=== PATIENT | female | born 1980 | race American Indian/Alaskan Native ===

== ENCOUNTER 2017-07-22 11:18 | Day surgery (SDC) | payer MEDICAID, OTHER ==
--- NOTE | 2017-07-21 23:47 | History and Physical Report ---
History of Present Illness Date of examination: 07/22/17 Chief complaint: Undesired Fertility History of present illness: Pt is a 37 year old -[place] female 2 2 10 who presents for surgical sterilization. She is aware of long-acting reversible contraceptives and she desires to proceed. 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: chlamydia (remote, treated ), gonorrhea (remote, treated), herpes, trichomonas (remote, treated ) Family/Genetic History: diabetes, hypertension, stroke, cancer Social history: no significant social history - Obstetrical History : 12 Para: 10 Hx # Term Pregnancies: 8 Number of Pregnancies: 2 Spontaneous Abortions: 0 Induced : 2 Number of Living Children: 10 Medications and Allergies Allergies Allergy/AdvReac Type Severity Reaction Status Date / Time No Known Allergies Allergy Unverified 07/20/17 16:47 Home Medications Medication Instructions Recorded Confirmed Last Taken Type No Known Home Medications [No 07/20/17 07/20/17 Unknown History Reported Home Medications] Review of Systems All systems: negative - Physical Exam Breasts: Positive: deferred Cardiovascular: Regular rate Lungs: Positive: Clear to auscultation Abdomen: Positive: soft (obese) Extremities: Positive: normal Results All other labs normal. Assessment and Plan A: Grandmultiparity Undesired fertility Obesity P: Proceed with laparoscopic tubal ligation and other indicated procedures.
[~2017-07-22 11:18] MED LIST: ANCEF/STERILE WATER 2 GM/20 ML 2 GM/20 ML SYRINGE IV NR; LACTATED RINGERS 1,000 ML IV SCH
--- NOTE | 2017-07-22 12:37 | Anesthesia Consultation ---
Anesthesia Consult and Med Hx Date of service: 07/22/17 - Airway Anesthetic Teeth Evaluation: Good (missing rear tooth) ROM Head & Neck: Adequate Mental/Hyoid Distance: Adequate Mallampati Class: Class I Intubation Access Assessment: Probably Good - Pulmonary Exam CTA: Yes - Cardiac Exam Cardiac Exam: RRR - Pre-Operative Health Status ASA Pre-Surgery Classification: ASA2 - Pulmonary Hx Smoking: Yes (former) Hx Asthma: No COPD: No Hx Pneumonia: No - Cardiovascular System Hx Hypertension: Yes (when ) - Central Nervous System Hx Seizures: No Hx Psychiatric Problems: No - Endocrine Hx Renal Disease: No Hx End Stage Renal Disease: No Hx Hypothyroidism: No Hx Hyperthyroidism: No - Hematic Hx Anemia: No Hx Sickle Cell Disease: No - Other Systems Hx Alcohol Use: No Hx Cancer: No - Additional Comments Anesthesia Medical History Comments: H/O pneumonia with chest tube end of january 2016
--- NOTE | 2017-07-22 12:38 | Anesthesia Day of Surgery ---
Anesthesia Day of Surgery - Day of Surgery Patient Examined: Yes Patient H&P Reviewed: Yes Patient is NPO: Yes
[2017-07-22 12:42] LABS: Hematocrit 41.8 % (30.3-42.9); Hemoglobin 13.5 gm/dl (10.1-14.3); Mean Corpuscular HGB Conc 32 % (30-34); Mean Corpuscular Hemoglobin 26 pg (28-32); Mean Corpuscular Volume 81 fl (79-97); Platelet Count 262 K/mm3 (140-440); Red Blood Count 5.13 M/mm3 (3.65-5.03); Red Cell Distribution Width 16.2 % (13.2-15.2)
[2017-07-22] MEDS ORDERED: PEPCID PO NR (13:00)
[2017-07-22] MEDS ORDERED: VERSED IV NR (13:00)
[2017-07-22] MEDS ORDERED: XYLOCAINE MPF 2% ONE (13:07)
[2017-07-22] MEDS ORDERED: ZEMURON IV ONE (13:07)
[2017-07-22] MEDS ORDERED: DIPRIVAN 10 MG/ML IV ONE (13:08)
[2017-07-22] MEDS ORDERED: SUBLIMAZE ONE (13:08)
[2017-07-22] MEDS ORDERED: MARCAINE 0.5% 30 ML INFILTRATI ONE (13:09)
[2017-07-22] MEDS ORDERED: NACL 0.9% 1000 ML 1,000 ML IV SCH (13:30)
[2017-07-22] MEDS ORDERED: MARCAINE 0.5% INFILTRATI ONE (13:37)
[2017-07-22] MEDS ORDERED: NACL 0.9% IR ONE ×2 (13:37)
[2017-07-22] MEDS ORDERED: NEOSTIGMINE ONE (13:49)
[2017-07-22] MEDS ORDERED: ZOFRAN ONE (13:49)
[2017-07-22] MEDS ORDERED: ROBINUL ONE (13:49)
[2017-07-22] MEDS ORDERED: DECADRON ONE (13:49)
[2017-07-22] MEDS ORDERED: SILVER NITRATE TP ONE ×2 (14:34→14:36)
--- NOTE | 2017-07-22 14:47 | Operative Report ---
Operative Report Operative Report: Date of procedure: July 22, 2017 Preoperative diagnosis: 1) Multiparity desires permanent sterilization 2) Obesity Postoperative diagnosis: Same Procedure: Laparoscopic bilateral tubal ligation via Filshie clip method Surgeon: Clarissa Breen MD Signal Apprentice: Mathew Matthews MD Anesthesia: General endotracheal anesthesia Findings: 1) 8-10 wk sized anteverted uterus 2) Normal appearing uterus, ovaries and fallopian tubes Estimated blood loss: 25 mL IV fluid: 900 mL Urine output: 100 mL clear prior to the procedure Specimens: None Complications: None. Counts correct 2 Disposition: Stable to PACU Indications for procedure: Patient is a 37-year-old 12para 8 2 2 10 who desires permanent sterilization. She is aware of long-acting reversible contraceptives and desires to proceed. Operation in detail: After the risks, benefits, alternatives and complications of the procedure were explained to the patient, she gave informed consent for the procedure. She was subsequently taken to the operating room with her IV noted to be running and placed in the dorsal supine position with sequential compression devices functioning. General endotracheal anesthesia was then induced without difficulty. The patient was then placed in placement dorsal lithotomy position. An exam under anesthesia was then performed yielding a 8-10 wk sized uterus. Next, the patient was prepped and draped in normal sterile fashion. A timeout was then performed. The bladder was then drained of urine yielding 100 mL of clear urine. An open sided speculum was placed into the vagina for visualization of the cervix. A single-tooth tenaculum was placed on the anterior lip of the cervix for traction. The uterus was then sounded to 8 cm. A uterine manipulator was then placed. The single-tooth tenaculum and speculum were then removed from the vagina. The surgeon's gloves were then changed. Attention was then turned to entry into the abdominal cavity. A 5 mm infraumbilical incision was made with an 11 blade. The skin was grasped on either side of the umbilicus with towel clips and tented up. The Veres needle was placed multiple times with some difficulty. Dr Mathew Matthews was then consulted. An incision was made 5 cm lateral to the umbilicus on the right side. A Veres needle was placed into the peritoneal cavity, confirmed with saline drop test. The abdomen was then insufflated with CO2 gas to a pressure of 17 mmHg. A 5 mm bladed trocar was then placed. An anatomic survey was then performed with no abnormalities noted. A third trocar site was created 4 cm superior to the pubic symphysis in the midline measuring 8 mm. An 8 mm trocar was then placed under direct visualization. Dr Matthews then left the case. The patient was placed in Trendelenburg position. The uterus was elevated, and two Filshie clips were then placed across the right and then the left fallopian tube at the level of the ampullae . At this time, all instruments were removed from the abdominal cavity. The pneumoperitoneum was released and a Valsalva maneuver was performed prior to removal of the trocars from the abdominal cavity. The incisions were then infiltrated with quarter percent Marcaine. The incisions were then reapproximated with 4-0 Monocryl in a subcuticular fashion. They were then covered with Steri-Strips, Telfa and Tegaderms. All instruments were then removed from the vagina. Hemostasis of the tenaculum puncture sites was achieved with silver nitrate. Hemostasis was noted. At this time the procedure was ended. The patient was placed into the dorsal supine position and extubated without difficulty. She was subsequently taken to the PACU in stable condition. All instrument, needle and lap counts were correct 2.
--- NOTE | 2017-07-22 14:54 | Short Stay Summary ---
Short Stay Documentation Date of service: 07/22/17 - History H&P: dictated Social history: no significant social history - Allergies and Medications Current Medications: Allergies No Known Allergies Allergy (Unverified 07/20/17 16:47) Home Medications Medication Instructions Recorded Confirmed Last Taken Type No Known Home Medications [No 07/20/17 07/20/17 Unknown History Reported Home Medications] Active Medications Famotidine (Pepcid) 20 mg PO PREOP NR Stop: 07/22/17 23:00 Last Admin: 07/22/17 12:55 Dose: 20 mg Cefazolin Sodium (Ancef/Sterile Water 2 Gm/20 Ml) 2 gm in 20 mls @ 80 mls/hr IV PREOP NR PRN Reason: Protocol Stop: 07/22/17 23:45 Lactated Ringer's (Lactated Ringers) 1,000 mls @ 100 mls/hr IV DIRECT JOSE Last Admin: 07/22/17 12:57 Dose: 100 mls/hr Sodium Chloride (Nacl 0.9% 1000 Ml) 1,000 mls @ 100 mls/hr IV DIRECT JOSE Midazolam HCl (Versed) 2 mg IV PREOP NR Stop: 07/22/17 23:59 Last Admin: 07/22/17 13:00 Dose: 2 mg - Physical exam Breasts: deferred - Brief post op/procedure progress note Date of procedure: 07/22/17 Pre-op diagnosis: Undesired Fertility, Obesity Post-op diagnosis: same Procedure: Laparoscopic bilateral tubal ligation via Filshie clip method Anesthesia: GETA Findings: 1) 8-10 wk sized anteverted uterus 2) Normal appearing uterus, ovaries and fallopian tubes Surgeon: ISMAEL CANTU Welfare Supervisor: HUSSEIN RENEE Estimated blood loss: minimal (25 mL) Pathology: none Condition: stable - Hospital course Hospital course: Pt tolerated laparoscopic bilateral tubal ligation which she tolerated well. She was observed in the PACU until she met discharge criteria. - Disposition Condition at discharge: Stable Disposition: DC-01 TO HOME OR SELFCARE - Discharge Diagnoses (1) Obesity Status: Acute Qualifiers: Obesity type: due to excess calories Obesity classification: O Serious obesity comorbidity presence: S Body mass index: BMI 33.0-33.9 (2) Encounter for sterilization Status: Acute Short Stay Discharge Plan Activity: other (Nothing in vagina, no lifting greater than 20 pounds for 4 weeks ) Weight Bearing Status: Full Weight Bearing Diet: regular Wound: keep clean and dry, remove dressing (on day 2 after surgery ) Follow up with: ISMAEL CANTU MD [Primary Care Provider] - 7 Days Prescriptions: Ibuprofen [Motrin] 800 mg PO Q8HR PRN #30 tablet PRN Reason: Pain Labetalol HCl 200 mg PO DAILY #30 tablet oxyCODONE /ACETAMINOPHEN [Percocet 5/325] 1 tab PO Q6HR PRN #30 tablet PRN Reason: Pain
[2017-07-22] MEDS ORDERED: LOPRESSOR IV PRN (15:00)
[2017-07-22] MEDS ORDERED: LOPRESSOR IV ONE (15:04)
[2017-07-22] MEDS: DILAUDID IV PRN ×2 (15:15→15:30)
[2017-07-22] MEDS ORDERED: DILAUDID ONE (15:20)
[2017-07-22] MEDS ORDERED: APRESOLINE ONE (15:46)
[2017-07-22] MEDS ORDERED: APRESOLINE IV PRN (15:50)
[2017-07-22] MEDS ORDERED: REGLAN IV PRN (16:18)
--- NOTE | 2017-07-22 16:20 | Post Anesthesia Evaluation ---
- Post Anesthesia Evaluation Patient Participated: Yes Airway Patent: Yes Stable Respiratory Function: Yes Temp > 96.8F: Yes Pain Manageable: Yes Adequeate Hydration: Yes Anesthesia Complications: No Block Receding Appropriately: Not Applicable
[2017-07-22] MEDS ORDERED: TRANSDERM-SCOP TD SCH (17:15)
[2017-07-22] MEDS ORDERED: ZOFRAN IV SCH (17:15)
[2017-07-22 18:13] VITALS: BP 148/92
--- NOTE | 2017-07-22 22:43 | Operative Report ---
PREOPERATIVE DIAGNOSES: 1. Tubal ligation. 2. Obese patient. 3. Insertion of the port as per recommendation of Dr. Clarissa Breen. ANESTHESIA: General. BLOOD LOSS: Minimal. FINDINGS: No abnormalities were seen other than for Dr. Breen to go ahead and do a tubal ligation.All the abdominal organs looked normal DESCRIPTION OF PROCEDURE: With the patient in supine position, prepped and draped in usual fashion, I made a small incision in the right mid upper abdomen. I was able to go with the Veress needle into the abdominal cavity and then it was insufflated with CO2 pressure of 15 and then we had to go to 17 because the patient was obese. Once this was achieved, the #5 long trocar inserted into the area, into the abdominal cavity. With use of the camera #5 we were able to see the entire abdominal cavity that looked normal to me. The liver was seen, the stomach, the small intestine, and large intestine. The uterus as well as both ovaries and both tubes on both sides. While I was satisfied, then Dr. Breen went ahead and did the tubal ligation for the patient. JOB# [id number] TAMMIE/HUMA GUERRA
== END 2017-07-22 17:55 | disposition home or self-care (01) ==
LOC: OR 11:18
PROVIDERS: ATTEND Obstetrics & Gynecology
DX: Z30.2 Encounter for sterilization (principal); Z64.1 Problems related to multiparity; E66.09 Other obesity due to excess calories
CPT/HCPCS: 36415; 58671; 81025; 85027; 86850; 86900; 86901; J0360; J0690; J1100; J1170; J2250; J2405; J2704; J2710; J2765; J3010; J7120

== ENCOUNTER 2019-12-13 09:38 | Emergency (ER) | payer MEDICAID, OTHER ==
[2019-12-13] MEDS ORDERED: IBUPROFEN 600 MG TAB PO ONE (10:07)
[2019-12-13 11:18] LABS: Hematocrit 25.7 % (30.3-42.9); Hemoglobin 7.6 gm/dl (10.1-14.3); Mean Corpuscular HGB Conc 30 % (30-34); Platelet Count 432 K/mm3 (140-440); Red Blood Count 4.05 M/mm3 (3.65-5.03); Red Cell Distribution Width 18.6 % (13.2-15.2)
[2019-12-13 11:37] LABS: Mean Corpuscular Volume 63 fl (79-97)
[2019-12-13 11:42] LABS: BUN/Creatinine Ratio 10; Blood Urea Nitrogen 6 mg/dL (7-17); Calcium 8.9 mg/dL (8.4-10.2); Hemolysis Index 2
[2019-12-13 12:07] LABS: Basophils % (Manual) 0 % (0.0-1.8); Eosinophils % (Manual) 0 % (0.0-4.3); Hypochromasia 2+; Monocytes % (Manual) 0 % (0.0-7.3); Ovalocytes Few; Platelet Estimate Consistent w Auto; Tear Drop Cells Few; Total Cells Counted 100
[2019-12-13] MEDS ORDERED: ACETAMINOPHEN 500 MG TAB PO ONE (12:16)
--- NOTE | 2019-12-13 12:57 | XRay Report ---
CHEST 2 VIEWS INDICATION / CLINICAL INFORMATION: cough. COMPARISON: None available. FINDINGS: SUPPORT DEVICES: None. HEART / MEDIASTINUM: No significant abnormality. LUNGS / PLEURA: No significant pulmonary or pleural abnormality. No pneumothorax. ADDITIONAL FINDINGS: No significant additional findings. IMPRESSION: 1. No acute findings. Signer Name: Jenaro Holland MD Signed: 12/13/2019 12:52 PM Workstation Name: [id number]
--- NOTE | 2019-12-13 13:21 | Emergency Department Report ---
ED General Adult HPI - General Chief complaint: Upper Respiratory Infection Stated complaint: FEVER/COUGH/CHILLS Time Seen by Provider: 12/13/19 13:04 Source: patient Mode of arrival: Ambulatory Limitations: No Limitations - History of Present Illness Initial comments: 39-year-old female with a history of iron deficiency anemia ("I have an iron bottle at home but I don't take them") and noncompliance. She states that she is on her menses now and that they have been regular. She doesn't report that they are different than usual. She states she thinks that she has had a flu for the last 2 days. Today she vomited 1. She does not complain of diarrhea or ongoing nausea. She's had a nonproductive cough and myalgias. She denies any recent travel. She's had no leg pain or swelling. She does not complain of dyspnea. 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 However she has not seen a physician for some time. -: Gradual, days(s) Location: upper extremity, lower extremity Quality: aching Consistency: intermittent, now resolved Improves with: none Worsens with: none Associated Symptoms: denies other symptoms, cough (infrequently), fever/chills (fever no chills), nausea/vomiting (nausea no vomiting) - Related Data Previous Rx's Medication Instructions Recorded Last Taken Type Ibuprofen [Motrin] 800 mg PO Q8HR PRN #30 tablet 07/22/17 Unknown Rx Labetalol HCl 200 mg PO DAILY #30 tablet 07/22/17 Unknown Rx oxyCODONE /ACETAMINOPHEN [Percocet 1 tab PO Q6HR PRN #30 tablet 07/22/17 Unknown Rx 5/325] cefUROXime [Ceftin] 250 mg PO Q12H #10 tablet 12/13/19 Unknown Rx Allergies Allergy/AdvReac Type Severity Reaction Status Date / Time No Known Allergies Allergy Verified 12/13/19 10:10 ED Review of Systems ROS: Stated complaint: FEVER/COUGH/CHILLS Other details as noted in HPI Constitutional: denies: chills, fever Eyes: denies: eye pain, eye discharge, vision change ENT: denies: ear pain, throat pain Respiratory: cough. denies: shortness of breath, wheezing Cardiovascular: denies: chest pain, palpitations Endocrine: no symptoms reported Gastrointestinal: vomiting. denies: abdominal pain, nausea (no ongoing), diarrhea Genitourinary: denies: urgency, dysuria, discharge Musculoskeletal: denies: back pain, joint swelling, arthralgia Skin: denies: rash, lesions Neurological: denies: headache, weakness, paresthesias Psychiatric: denies: anxiety, depression Hematological/Lymphatic: denies: easy bleeding, easy bruising ED Past Medical Hx - Past Medical History Hx Hypertension: Yes (when ) Hx Congestive Heart Failure: No Hx Diabetes: No Hx Deep Vein Thrombosis: No Hx Renal Disease: No Hx Sickle Cell Disease: No Hx Seizures: No Hx Asthma: No Hx COPD: No Hx HIV: No Additional medical history: hospital admission for PNA, 01/2016 - Surgical History Past Surgical History?: No - Social History Smoking Status: Current Some Day Smoker Substance Use Type: Marijuana - Medications Home Medications: Home Medications Medication Instructions Recorded Confirmed Last Taken Type Ibuprofen [Motrin] 800 mg PO Q8HR PRN #30 tablet 07/22/17 Unknown Rx Labetalol HCl 200 mg PO DAILY #30 tablet 07/22/17 Unknown Rx oxyCODONE /ACETAMINOPHEN [Percocet 1 tab PO Q6HR PRN #30 tablet 07/22/17 Unknown Rx 5/325] cefUROXime [Ceftin] 250 mg PO Q12H #10 tablet 12/13/19 Unknown Rx ED Physical Exam - General Limitations: No Limitations General appearance: alert, in no apparent distress - Head Head exam: Present: atraumatic, normocephalic - Eye Eye exam: Present: normal appearance, PERRL, EOMI. Absent: scleral icterus - ENT ENT exam: Present: mucous membranes moist - Neck Neck exam: Present: normal inspection. Absent: tenderness, meningismus - Respiratory Respiratory exam: Present: normal lung sounds bilaterally. Absent: respiratory distress - Cardiovascular Cardiovascular Exam: Present: regular rate, normal rhythm. Absent: systolic murmur, diastolic murmur, rubs, gallop - GI/Abdominal GI/Abdominal exam: Present: soft, normal bowel sounds. Absent: distended, tenderness, guarding, rebound, rigid - Extremities Exam Extremities exam: Present: normal inspection. Absent: pedal edema, joint sw elling, calf tenderness - Back Exam Back exam: Present: normal inspection. Absent: CVA tenderness (R), CVA tenderness (L), muscle spasm, vertebral tenderness - Neurological Exam Neurological exam: Present: alert, oriented X3, CN II-XII intact. Absent: motor sensory deficit - Psychiatric Psychiatric exam: Present: normal affect, normal mood - Skin Skin exam: Present: warm, dry, intact, normal color. Absent: rash ED Course Vital Signs 12/13/19 12/13/19 12/13/19 09:41 10:05 12:17 Temperature 98.8 F 103 F H 103 F H Pulse Rate 111 H 111 H 125 H Respiratory 18 16 Rate Blood Pressure 155/97 135/73 [Right] O2 Sat by Pulse 100 98 Oximetry 12/13/19 13:24 Temperature 99.1 F Pulse Rate 94 H Respiratory 16 Rate Blood Pressure 131/81 [Right] O2 Sat by Pulse 98 Oximetry - Reevaluation(s) Reevaluation #1: Looks improved. Resting comfortably. Appropriate for outpatient disposition. 12/13/19 14:30 ED Medical Decision Making - Lab Data Result diagrams: 12/13/19 11:06 12/13/19 11:06 Laboratory Results - last 24 hr 12/13/19 12/13/19 12/13/19 11:06 11:06 13:52 WBC 10.4 RBC 4.05 Hgb 7.6 L Hct 25.7 L MCV 63 L MCH 19 L MCHC 30 RDW 18.6 H Plt Count 432 Add Manual Diff Complete Total Counted 100 Seg Neutrophils % Mailer Seg Neuts % (Manual) 97.0 H Band Neutrophils % 0 Lymphocytes % (Manual) 3.0 L Reactive Lymphs % (Man) 0 Monocytes % (Manual) 0 Eosinophils % (Manual) 0 Basophils % (Manual) 0 Metamyelocytes % 0 Myelocytes % 0 Promyelocytes % 0 Blast Cells % 0 Nucleated RBC % Not Reportable Seg Neutrophils # Man 10.1 H Band Neutrophils # 0.0 Lymphocytes # (Manual) 0.3 L Abs React Lymphs (Man) 0.0 Monocytes # (Manual) 0.0 Eosinophils # (Manual) 0.0 Basophils # (Manual) 0.0 Metamyelocytes # 0.0 Myelocytes # 0.0 Promyelocytes # 0.0 Blast Cells # 0.0 WBC Morphology Not Reportable Hypersegmented Neuts Not Reportable Hyposegmented Neuts Not Reportable Hypogranular Neuts Not Reportable Smudge Cells Not Reportable Toxic Granulation Not Reportable Toxic Vacuolation Not Reportable Dohle Bodies Not Reportable Pelger-Huet Anomaly Not Reportable Colin Rods Not Reportable Platelet Estimate Consistent w auto Clumped Platelets Not Reportable Plt Clumps, EDTA Not Reportable Large Platelets Not Reportable Giant Platelets Not Reportable Platelet Satelliting Not Reportable Plt Morphology Comment Not Reportable RBC Morphology Not Reportable Dimorphic RBCs Not Reportable Polychromasia Not Reportable Hypochromasia 2+ Poikilocytosis Not Reportable Anisocytosis Not Reportable Microcytosis 2+ Macrocytosis Not Reportable Spherocytes Not Reportable Pappenheimer Bodies Not Reportable Sickle Cells Not Reportable Target Cells Not Reportable Tear Drop Cells Few Ovalocytes Few Helmet Cells Not Reportable [place]uel[place] Bodies Not Reportable Berry Rings Not Reportable Nabeel Cells Not Reportable Bite Cells Not Reportable Crenated Cell Not Reportable Elliptocytes Not Reportable Acanthocytes (Spur) Not Reportable Rouleaux Not Reportable Hemoglobin C Crystals Not Reportable Schistocytes Not Reportable Malaria parasites Not Reportable Dileep Bodies Not Reportable Hem Pathologist Commnt No Sodium 136 L Potassium 3.5 L Chloride 103.9 Carbon Dioxide 19 L Anion Gap 17 BUN 6 L Creatinine 0.6 L Estimated GFR > 60 BUN/Creatinine Ratio 10 Glucose 112 H Calcium 8.9 Urine Color Straw Urine Turbidity Clear Urine pH 6.0 Ur Specific [place] 1.006 Urine Protein <15 mg/dl Urine Glucose (UA) Neg Urine Ketones 20 Urine Blood Mod Urine Nitrite Neg Ur Reducing Substances Not Reportable Urine Bilirubin Neg Urine Ictotest Not Reportable Urine Urobilinogen < 2.0 Ur Leukocyte Esterase Tr Urine WBC (Auto) 9.0 H Urine RBC (Auto) 4.0 U Epithel Cells (Auto) < 1.0 Urine Bacteria (Auto) 4+ Urine HCG, Qual Negative Critical care attestation.: If time is entered above; I have spent that time in minutes in the direct care of this critically ill patient, excluding procedure time. ED Disposition Clinical Impression: Viral illness UTI (urinary tract infection) Qualifiers: Urinary tract infection type: site unspecified Hematuria presence: without hematuria Qualified Code(s): N39.0 - Urinary tract infection, site not specified Disposition: DC- TO HOME OR SELFCARE Is pt being admited?: No Does the pt Need Aspirin: No Condition: Stable Instructions: Viral Syndrome (ED), Urinary Tract Infection in Women (ED) Additional Instructions: Increase fluids. Tylenol every 4 hours. Follow-up with a primary care physician. Rx for possible early urinary tract infection. Return to the emergency department any acute change or worsening symptoms. Prescriptions: cefUROXime [Ceftin] 250 mg PO Q12H #10 tablet Referrals: PRIMARY CAREMD [Primary Care Provider] - 3-5 Days [facility] [Provider Group] - 3-5 Days Time of Disposition: 14:32
[2019-12-13 14:05] LABS: HCG Qualitative,Urine Negative (Negative)
[2019-12-13 14:07] LABS: Bacteria,Urine 4+ /HPF (Negative); Bilirubin,Urine NEG (Negative); Blood,Urine MOD (Negative); Color,Urine Straw (Yellow); Protein,Urine <15 mg/dL mg/dL (Negative); Urobilinogen,Urine < 2.0 mg/dL (<2.0)
[2019-12-13 14:42] VITALS: BP 130/74
== END 2019-12-13 14:41 | disposition home or self-care (01) ==
LOC: ED 09:38
DX: N39.0 Urinary tract infection, site not specified (principal); B34.9 Viral infection, unspecified; I10 Essential (primary) hypertension; F17.200 Nicotine dependence, unspecified, uncomplicated; F12.10 Cannabis abuse, uncomplicated; Z79.899 Other long term (current) drug therapy
CPT/HCPCS: 36415; 71046; 80048; 81001; 81025; 85007; 85025; 87076; 87086; 87186